=== PATIENT | female | born 1970 | race African-American/Black ===

== ENCOUNTER 2022-10-01 16:42 | Emergency (ER) | payer MEDICAID ==
[~2022-10-01] VITALS: Ht 160 cm; Wt 145.0 kg
[~2022-10-01 16:42] MED LIST: GLYBURIDE; LOTENSIN
[2022-10-01 18:35] LABS: BASOPHILS % 0.4 % (0.0-2.0); EOSINOPHILS % 1.1 % (0.0-5.0); HEMATOCRIT. 41.2 % (36.0-48.0); HEMOGLOBIN. 13.2 g/dL (12.0-16.0); MEAN CORPUSCULAR HEMOGLOBIN 27.1 pg (28.0-32.0); MEAN CORPUSCULAR VOLUME 84.3 fL (81.0-99.0); MEAN PLATELET VOLUME 7.8 fl (7.4-10.4); MONOCYTES % 5.7 % (2.0-8.0); NEUTROPHILS % 76.8 % (40.0-76.0); PLATELET 285 x1000/uL (130-400); RED BLOOD CELL COUNT 4.89 mill/uL (4.2-5.4); RED CELL DISTRIBUTION WIDTH 16.2 % (11.6-14.6)
[2022-10-01 18:38] LABS: CHLORIDE 105 mEq/L (98-107)
[2022-10-01] MEDS ORDERED: METFORMIN HCL 500MG TABLET PO NR (19:00)
[2022-10-01] MEDS ORDERED: OXYB5TAB17 MT (19:51)
[2022-10-01] MEDS ORDERED: HYDR-4009 MT (19:51)
[2022-10-01] MEDS ORDERED: BACL-141 MT (19:51)
[2022-10-01] MEDS ORDERED: ASPI-1497 MT (19:51)
[2022-10-01] MEDS ORDERED: METF-416 MT (19:51)
[2022-10-01] MEDS ORDERED: ATOR20TA65 MT (19:51)
[2022-10-01] MEDS ORDERED: HYDR25TA MT (19:51)
[2022-10-01 20:00] VITALS: BP 128/66
== END 2022-10-01 21:46 | disposition home or self-care (01) ==
LOC: ER 16:42
DX: E11.65 Type 2 diabetes mellitus with hyperglycemia (principal); I10 Essential (primary) hypertension; Z86.73 Personal history of transient ischemic attack (TIA), and cerebral infarction without residual deficits; Z79.84 Long term (current) use of oral hypoglycemic drugs; Z79.899 Other long term (current) drug therapy
CPT/HCPCS: 36415; 80048; 85025; 99283; Z7610

== ENCOUNTER 2023-08-22 18:11 | Emergency (ER) | payer MEDICAID ==
[~2023-08-22] VITALS: Ht 167.6 cm; Wt 91.0 kg
[~2023-08-22 18:11] MED LIST changes: +ASPI-1497 MT; +ATOR20TA65 MT; +BACL-141 MT; +HYDR-4009 MT; +HYDR25TA MT; +METF-416 MT; +OXYB5TAB17 MT
[2023-08-22 18:12] VITALS: BP 160/88; TEMP 98.6; O2SAT 97
[2023-08-22] MEDS ORDERED: IPRATROPIUM BROMIDE (0.02%) 0.5MG/2.5ML NEB HHN STA (18:31)
[2023-08-22] MEDS ORDERED: PREDNISONE 20MG TABLET PO STA (18:31)
[2023-08-22] MEDS ORDERED: ALBUTEROL (0.083%) 2.5MG/3ML NEB HHN STA (18:31)
[2023-08-22 19:42] LABS: BASOPHILS % 0.4 % (0.0-2.0); EOSINOPHILS % 2.2 % (0.0-5.0); HEMOGLOBIN. 12.4 g/dL (12.0-16.0); MEAN CORPUSCULAR HEMOGLOBIN 27.2 pg (28.0-32.0); MEAN CORPUSCULAR HGB CONC 32.7 g/dL (31.0-37.0); MEAN CORPUSCULAR VOLUME 83.2 fL (81.0-99.0); MEAN PLATELET VOLUME 7.6 fl (7.4-10.4); MONOCYTES % 5.8 % (2.0-8.0); NEUTROPHILS % 67.6 % (40.0-76.0); PLATELET 237 x1000/uL (130-400); RED BLOOD CELL COUNT 4.57 mill/uL (4.2-5.4); WHITE BLOOD COUNT 9.1 x1000/uL (4.5-11.0)
[2023-08-22 19:58] LABS: ALANINE AMINOTRANSFERASE 8 IU/L (10-49); ALBUMIN 4.2 g/dL (3.2-4.8); ASPARTATE AMINOTRANSFERASE 12 IU/L (<34); BILIRUBIN TOTAL 0.3 mg/dL (0.1-1.0); CALCIUM 9.6 mg/dL (8.7-10.4); CARBON DIOXIDE 27 mEq/L (21-32); CHLORIDE 108 mEq/L (98-107); CREATININE 0.6 mg/dL (0.6-1.0); GLUCOSE 139 mg/dL (70-105); POTASSIUM 3.8 mEq/L (3.5-5.1); PROTEIN TOTAL 6.7 g/dL (6.0-8.3); SODIUM 143 mEq/L (136-145); TROPONIN I HIGH SENSITIVITY 4 ng/L (3.0-34); UREA NITROGEN BLOOD 12 mg/dL (9-23)
[2023-08-22] MEDS ORDERED: [UNRECOGNIZED DRUG - CODE] MC (20:29)
[2023-08-22] MEDS ORDERED: ALBU2.5V13 NEB (20:29)
[2023-08-22] MEDS ORDERED: P50 MT (20:29)
[2023-08-22] MEDS ORDERED: ALBU6.7H15 INH (20:29)
[2023-08-22] MEDS: PREDNISONE 20MG TABLET PO NR (21:53)
[2023-08-22] MEDS: ALBUTEROL (0.083%) 2.5MG/3ML NEB HHN NR (22:29)
[2023-08-22 22:30] VITALS: PULSE 87; RESP 18
[2023-08-22] MEDS: IPRATROPIUM BROMIDE (0.02%) 0.5MG/2.5ML NEB HHN NR (22:30)
== END 2023-08-23 07:47 | disposition home or self-care (01) ==
LOC: ER 18:18
DX: J44.1 Chronic obstructive pulmonary disease with (acute) exacerbation (principal); E11.9 Type 2 diabetes mellitus without complications; I10 Essential (primary) hypertension; Z86.73 Personal history of transient ischemic attack (TIA), and cerebral infarction without residual deficits; Z79.899 Other long term (current) drug therapy
CPT/HCPCS: 80053; 83880; 85025; 84484; 36415; 71045; 93005; 99285; J7512; Z7610

== ENCOUNTER 2024-08-09 20:00 | Emergency (ER) | payer MEDICAID ==
[~2024-08-09] VITALS: Ht 165.1 cm; Wt 137.0 kg
[~2024-08-09 20:00] MED LIST changes: +ALBU2.5V13 NEB; +ALBU6.7H15 INH; +OXYB-52 MT; -OXYB5TAB17 MT; +P50 MT; +[UNRECOGNIZED DRUG - CODE] MC
[2024-08-09 20:04] VITALS: BP 144/115; PULSE 103; RESP 16; TEMP 36.8; O2SAT 100
[2024-08-09] MEDS ORDERED: HYDROCODONE/ACETAMINOPHEN 5/325MG TABLET PO ONE (20:45)
[2024-08-09] MEDS ORDERED: TETANUS, DIPHTHERIA, PERTUSSIS VAC/PF 0.5ML (>10YR OLD) IM ONE (20:45)
[2024-08-10] MEDS ORDERED: HYDROCODONE/ACETAMINOPHEN 5/325MG TABLET PO NR (01:00)
[2024-08-10] MEDS ORDERED: TETANUS, DIPHTHERIA, PERTUSSIS VAC/PF 0.5ML (>10YR OLD) IM ONE (01:00)
== END 2024-08-09 21:22 | disposition left against medical advice (07) ==
LOC: ER 20:00
DX: S00.211A Abrasion of right eyelid and periocular area, initial encounter (principal); E11.9 Type 2 diabetes mellitus without complications; I10 Essential (primary) hypertension; J45.909 Unspecified asthma, uncomplicated; Z79.82 Long term (current) use of aspirin; Z79.84 Long term (current) use of oral hypoglycemic drugs; Z79.899 Other long term (current) drug therapy; Z86.73 Personal history of transient ischemic attack (TIA), and cerebral infarction without residual deficits; W01.0XXA Fall on same level from slipping, tripping and stumbling without subsequent striking against object, initial encounter; Y93.89 Activity, other specified; Y92.89 Other specified places as the place of occurrence of the external cause; Y99.8 Other external cause status
CPT/HCPCS: 99281; 99283